=== PATIENT | female | born 1950 | race Caucasian/White ===

== ENCOUNTER 2021-05-24 12:31 | Inpatient (IN) | payer MEDICARE, OTHER ==
[~2021-05-24] VITALS: Ht 172.7 cm; Wt 68.0 kg
[2021-05-24] MEDS ORDERED: IV NS 0.9% 1,000 ML BAG IV ONE (13:00)
--- NOTE | 2021-05-24 13:01 | NUR ---
The patient is bib PA for medical clearance prior to gps admission. on 5150 for dto/gd. Per Report the patient was aggressive to staff and residents. The patient is calm and cooperative at this time. Alert and oriented x1. Denies pain. In room air and denies SOB. Respiration regular and unlabored. Attached to the monitor. Warm blanket provided for comfort. Will continue to monitor the patient
--- NOTE | 2021-05-24 13:10 | NUR ---
IV LINE IS ESTABLISHED, BLOOD SPECIMEN COLLECTED AND SENT TO THE LAB. THE LINE IS SALINE LOCKED.
--- NOTE | 2021-05-24 13:22 | NUR ---
URINE COLLECTED AND SEN TO LAB
[2021-05-24] MEDS ORDERED: SENN-261 PO (13:24)
[2021-05-24] MEDS ORDERED: LIOT25TA13 PO (13:24)
[2021-05-24] MEDS ORDERED: LEVO100T9 PO (13:24)
[2021-05-24] MEDS ORDERED: RIVA1.5C13 PO (13:24)
[2021-05-24] MEDS ORDERED: SERT25TA PO (13:24)
[2021-05-24] MEDS ORDERED: FAMO20TA8 PO (13:24)
[2021-05-24] MEDS ORDERED: MELA3TAB41 PO (13:24)
[2021-05-24] MEDS ORDERED: MAGN400O6 PO (13:24)
[2021-05-24] MEDS ORDERED: LITH450T2 PO (13:24)
[2021-05-24] MEDS ORDERED: ACET-868 PO (13:24)
[2021-05-24] MEDS ORDERED: QUET50TA PO (13:24)
[2021-05-24] MEDS ORDERED: QUET25TA PO (13:24)
[2021-05-24] MEDS ORDERED: MULT-447 PO (13:24)
[2021-05-24] MEDS ORDERED: MEMA10TA PO (13:26)
[2021-05-24 13:28] LABS: EOSINOPHILS % (AUTO) 0.9 % (0.0-6.0); HEMOGLOBIN 13.5 g/dL (11.5-14.8); MEAN CORPUSCULAR HGB CONC 33 g/dl (31.0-36.0); MONOCYTES # (AUTO) 0.4 K/uL (0.1-1.30); PLATELET COUNT (AUTO) 267 K/uL (150-450)
[2021-05-24 13:32] LABS: BASOPHILS % (AUTO) 0.3 % (0.0-2.0); HEMATOCRIT 41 % (33-45); LYMPHOCYTES # (AUTO) 1.2 K/uL (0.8-4.8); LYMPHOCYTES % (AUTO) 16.8 % (20.0-44.0); MEAN CORPUSCULAR VOLUME 94 fL (82-100); NEUTROPHILS # (AUTO) 5.4 K/uL (1.8-8.9); RED BLOOD CELL COUNT(AUTO) 4.36 MIL/uL (4.0-5.2); WHITE BLOOD COUNT (AUTO) 7.2 K/uL (4.3-11.0)
[2021-05-24 13:37] LABS: CALCIUM, SERUM 9.3 mg/dL (8.5-10.1); CARBON DIOXIDE 30 mmol/L (21-32); CHLORIDE 106 mmol/L (98-107); GLUCOSE 100 mg/dL (74-106); POTASSIUM 3.8 mmol/L (3.5-5.1); SODIUM SERUM 141 mmol/L (136-145); UREA NITROGEN, BLOOD 9 mg/dL (7-18)
[2021-05-24 13:39] LABS: BILIRUBIN,URINE Negative (NEGATIVE); COLOR,URINE YELLOW (YELLOW); LEUKOCYTE ESTERASE ,URINE Negative (NEGATIVE); NITRITE, URINE Negative (NEGATIVE); PROTEIN,URINE Negative (NEGATIVE); UGLUCOSE Negative (NEGATIVE); UROBILINOGEN,URINE 0.2 EU/dL (0.2)
--- NOTE | 2021-05-24 13:41 | NUR ---
COVID ANTIGEN SWAB AND SENT TO LAB
[2021-05-24 13:43] LABS: ACETAMINOPHEN 0 ug/ml (10-30); ALANINE AMINOTRANSFERASE 46 U/L (12-78); ALBUMIN 3.4 g/dL (3.4-5.0); ALCOHOL, BLOOD < 3 mg/dL (0-0); ALKALINE PHOSPHATASE 106 U/L (46-116); ASPARTATE AMINOTRANSFERASE 31 U/L (15-37); BILIRUBIN,DIRECT 0.1 mg/dL (0.0-0.2); BILIRUBIN,TOTAL 0.4 mg/dL (0.2-1.0); TOTAL PROTEIN, SERUM 7.4 g/dL (6.4-8.2)
--- NOTE | 2021-05-24 14:00 | NUR ---
MOVE SHEET SUBMITTED
--- NOTE | 2021-05-24 15:15 | NUR ---
[place] [facility] [place]
--- NOTE | 2021-05-24 15:40 | NUR ---
SASCHA CALLED UNABLE TO LEAVE [facility] [place].
--- NOTE | 2021-05-24 15:41 | NUR ---
CALLED EDER COOMBS [phone] [facility]
--- NOTE | 2021-05-24 15:47 | NUR ---
REPORT GIVEN TO KATEY GOTTLIEB FOR OREN
--- NOTE | 2021-05-24 16:00 | NUR ---
RN-ADMISSION NOTES ADMITTED 70 Y.O FEMALE PATIENT [facility]. PATIENT ON 5150 FOR DTO AND GD ADULT. UPON FACE TO FACE ASSESSMENT PATIENT IS ALERT TO NAME ONLY, UNABLE TO COMPREHEND. PATIENT IS UNDER DR. MADRIGAL ( PSYCHIATRIST) AND MARK ZUNIGA ( ROUNDING MACHINE OPERATOR) BOTH ARE AWARE OF THE ADMISSION WITH ORDERS. PATIENT WAS ORIENTED IN THE UNIT AND UNITY POLICIES. PATIENT SPOUSE BRITTANY ASTUDILLO WAS MADE AWARE OF THE ADMISSION. ALL NEEDS ATTENDED AND ANTICIPATED. FULL BODY . ASSESSMENT AND CONTRABAND DONE. WILL ENDORSE TO INCOMING NURSE FOR CONTINUITY OF CARE.
[2021-05-24] MEDS ORDERED: BLOOD SUGAR DIAGNOSTIC 1 EACH STRIP IN ONE (16:30)
[2021-05-24] MEDS ORDERED: ACETAMINOPHEN 325 MG TABLET PO PRN (16:30)
[2021-05-24] MEDS ORDERED: MAG HYDROX/AL HYDROX/SIMETH 30 ML UDC PO PRN (16:30)
[2021-05-24] MEDS ORDERED: MAGNESIUM HYDROXIDE 30 ML UDC PO PRN ×2 (16:30)
[2021-05-24] MEDS ORDERED: HOME MED MISCELLANEOUS XX SCH (16:30)
[2021-05-24] MEDS: MEMANTINE HCL 5 MG TABLET PO SCH (17:06)
[2021-05-24] MEDS: RIVASTIGMINE TARTRATE 1.5 MG CAPSULE PO SCH (17:07)
[2021-05-24 17:20] VITALS: BP 124/60
[2021-05-24 20:56] VITALS: BP 106/65
[2021-05-24] MEDS: FAMOTIDINE (20 MG) 20 MG TABLET PO SCH (21:19)
[2021-05-24] MEDS: SENNOSIDES 8.6 MG TABLET PO SCH (21:19)
[2021-05-24] MEDS: LORAZEPAM 0.5 MG TABLET PO PRN (22:11)
--- NOTE | 2021-05-24 22:11 | NUR ---
GPS-RN NOTES: ANXIETY PATIENT IS ANXIOUS AND RESTLESS. PRN ATIVAN 0.5MG PO GIVEN ORDERED. WILL CONTINUE TO MONITOR FOR PT'S SAFETY.
--- NOTE | 2021-05-25 06:10 | NUR ---
GPS-RN NOTES: INDIGESTION PATIENT WITH EPISODE OF THROWING UP X1 IN LARGE AMOUNT OF UNDIGESTED FOOD. PRN MAALOX 30ML PO GIVEN ORDERED. WILL CONTINUE TO MONITOR AND WILL ENDORSE TO DAY SHIFT NURSE FOR CONTINUITY OF CARE.
[2021-05-25 08:00] VITALS: BP 103/66
[2021-05-25 08:03] LABS: ALBUMIN 2.8 g/dL (3.4-5.0); BILIRUBIN,TOTAL 0.4 mg/dL (0.2-1.0); CALCIUM, SERUM 8.6 mg/dL (8.5-10.1); POTASSIUM 3.8 mmol/L (3.5-5.1); TOTAL PROTEIN, SERUM 6.3 g/dL (6.4-8.2)
[2021-05-25 08:05] LABS: CHOLESTEROL 220 mg/dL (<200); HDL CHOLESTEROL 58 mg/dL (40-60); LDL 139 mg/dL (0-99); TRIGLYCERIDES 101 mg/dL (30-150)
[2021-05-25] MEDS: MULTIVITAMINS,THERAGRAN 1 UDTAB TABLET PO SCH (08:20)
[2021-05-25] MEDS: RIVASTIGMINE TARTRATE 1.5 MG CAPSULE PO SCH ×2 (08:20→16:22)
[2021-05-25] MEDS: FAMOTIDINE (20 MG) 20 MG TABLET PO SCH ×2 (08:20→22:08)
[2021-05-25] MEDS: MEMANTINE HCL 5 MG TABLET PO SCH ×2 (08:20→16:22)
[2021-05-25] MEDS: LEVOTHYROXINE SODIUM 100 MCG TABLET PO SCH (08:20)
[2021-05-25] MEDS: LIOTHYRONINE SODIUM (25 MCG) 25 MCG TABLET PO SCH (08:23)
--- NOTE | 2021-05-25 09:22 | NUR ---
LORI Initial Discharge Plan: Pt was currently residing at [facility]. LORI spoke with Troy slade ([phone]) who stated pt cannot return back because wants her back home. SW will coordinate appropriate discharge with treatment team and family.
--- NOTE | 2021-05-25 09:44 | NUR ---
LORI Family Contact: SW attempted to contact patient's Bogdan ([phone]) and left a voicemail to gather collateral.
--- NOTE | 2021-05-25 09:45 | NUR ---
SNF Contact: SW spoke with Troy slade ([phone]) who stated pt cannot return back because wants her back home. SW will attempt to speak to Bogdan ([phone]).
--- NOTE | 2021-05-25 10:45 | NUR ---
SNF Contact: SW spoke with Troy slade ([phone]) who stated that they are accepting pt back.
--- NOTE | 2021-05-25 10:45 | NUR ---
LORI Family Contact: LORI attempted to contact patient's Bogdan ([phone]) and gathered collateral. He stated that they have no family support. He reported that he is living in his van. Bogdan shared that he does not want pt back at [facility] but if this development writer is unable to find a facility, he is accepting of pt returning back. LORI will work with family to find appropriate discharge.
[2021-05-25] MEDS: LORAZEPAM 0.5 MG TABLET PO PRN (12:05)
--- NOTE | 2021-05-25 12:05 | NUR ---
RN-NOTES NOTED PATIENT CRYING ,ANXIOUS UNABLE TO SIT STILL. REDIRECTED AND ATIVAN 0.5MG P.O GIVEN PRN ORDER. WILL CONT. MONITORING FOR SAFETY AND BEHAVIOR.
--- NOTE | 2021-05-25 12:10 | NUR ---
RN-NOTES PATIENT IN THE DAY ROOM, AWAKE, ALERT CALM AND QUIET,NO ACUTE DISTRESS NOTED.
--- NOTE | 2021-05-25 13:10 | NUR ---
RN-NOTES PATIENT IN THE DAY ROOM SITTING IN THE CHAIR CALM,NO ACUTE DISTRESS NOTED.
[2021-05-25 16:00] VITALS: BP 114/61
[2021-05-25] MEDS: QUETIAPINE FUMARATE 25 MG TABLET PO SCH (17:15)
[2021-05-25] MEDS: LITHIUM CARBONATE 150 MG CAPSULE PO SCH (17:15)
[2021-05-25 20:00] VITALS: BP 117/78
[2021-05-25] MEDS ORDERED: QUETIAPINE FUMARATE 100 MG TABLET PO SCH (22:00)
[2021-05-25] MEDS: SENNOSIDES 8.6 MG TABLET PO SCH (22:07)
--- NOTE | 2021-05-26 06:22 | NUR ---
RN CLOSING NOTE PATIENT CURRENTLY SLEEPING IN BED, BREATHING EVENLY AND UNLABORED, NO S/S OF DISTRESS OR SOB NOTED. PATIENT SLEPT WELL THROUGH THE NIGHT, NO SIGNIFICANT CHANGES AND NO BEHAVIORAL ISSUES NOTED. PT SPENT TIME WITH HER AT THE BEGINNING OF THE SHIFT. PT HAD LABILE MOOD AND HAD DIFFICULTY FORMING SENTENCES THAT MADE SENSE, PT CONFUSED. PT WAS MED COMPLIANT, MEDICATIONS GIVEN ORDERED AND PATIENT NEEDS MET THROUGHOUT SHIFT. PT WAS MOVED TO A DIFFERENT ROOM BECAUSE ROOMMATE WAS AGGRESSIVE AND HOSTILE. SAFETY MEASURES IN PLACE: BED LOCKED IN LOW POSITION, SIDE RAILS UP X 2, Q15 MIN CHECKS FOR SAFETY. WILL ENDORSE TO DAY SHIFT NURSE FOR CONTINUITY OF CARE.
--- NOTE | 2021-05-26 07:20 | NUR ---
RN OPENING NOTES RECEIVED PATIENT SLEEPING IN BED, WHEELS ARE LOCKED - LOW TO FLOOR FOR SAFETY MEASURES, NO SOB NOTED, BREATHING IS EVEN AND UNLABORED, NO S/S OF DISTRESS. CALL LIGHT IN REACH.
[2021-05-26] MEDS: LIOTHYRONINE SODIUM (25 MCG) 25 MCG TABLET PO SCH ×2 (07:30→09:21)
[2021-05-26 08:00] VITALS: BP 103/70
[2021-05-26] MEDS: MEMANTINE HCL 5 MG TABLET PO SCH ×3 (09:00→17:29)
[2021-05-26] MEDS: FAMOTIDINE (20 MG) 20 MG TABLET PO SCH ×3 (09:00→20:52)
[2021-05-26] MEDS: RIVASTIGMINE TARTRATE 1.5 MG CAPSULE PO SCH ×3 (09:00→17:29)
[2021-05-26] MEDS: MULTIVITAMINS,THERAGRAN 1 UDTAB TABLET PO SCH ×2 (09:00→09:22)
[2021-05-26] MEDS: QUETIAPINE FUMARATE 25 MG TABLET PO SCH ×3 (09:00→13:26)
[2021-05-26] MEDS: LITHIUM CARBONATE 150 MG CAPSULE PO SCH ×3 (09:21→17:29)
[2021-05-26] MEDS: LEVOTHYROXINE SODIUM 100 MCG TABLET PO SCH (09:22)
--- NOTE | 2021-05-26 09:41 | NUR ---
Staff reported that pt. went to a male room and kissing each other and when redirected pt. was angry, agitated, screaming and yelling. Dr. Chavez made aware and ordered Zyprexa 10 mg IM. Addendum: 05/26/21 at 1036 by AMY MANDUJANO RN Called Daquan at [phone] and made aware.
--- NOTE | 2021-05-26 09:53 | NUR ---
RN NOTES RECEIVED PATIENT ASLEEP, NO DISTRESS NOTED, NO SOB NOTED, BREATHING NORMAL, BED LOW TO FLOOR, WHEELS LOCKED, SAFETY MEASURES IN PLACE.
--- NOTE | 2021-05-26 09:55 | NUR ---
RN NOTES PATIENT GAIT UNSTEADY, NOT COOPERATIVE WITH ASKING FOR HELP TO AMBULATE AND TRANSFER, PLACED IN SANDY CHAIR WITH TRAY LOCK FOR SAFETY, SCREAMING HOLLERING CRYING EXTREMELY LOUD DISRUPTING OTHER PATIENTS AND ATMOSPHERE, MOVED TO OBSERVATION ROOM, GIVEN CRACKERS AND WATER, CONTINUED TO SCREAM AND WIGGLE VIVACIOUSLY TO GET OUT OF THE CHAIR, NOTIFIED, ORDERED OLANZAPINE 10 MG IN INJECTION, THERAPY TECH RN ADMIN MED, EFFECTIVE, WILL CONTINUE TO OBSERVE AND KEEP PATIENT SAFE, FALL PREVENTION MEASURES INTACT FOR SAFETY.
[2021-05-26] MEDS ORDERED: OLANZAPINE 10 MG VIAL IM ONE (10:00)
[2021-05-26 16:00] VITALS: BP 106/59
--- NOTE | 2021-05-26 16:02 | NUR ---
SNF Referral: LORI sent clinicals to Ronald slade from [facility] ([phone]. LORI sent H & P, progress notes, and medication list.
--- NOTE | 2021-05-26 18:46 | NUR ---
PATIENT FRIENDLY WITH MALE PATIENT SEEN HOLDING HANDS AND KISSING, REDIRECTED, ALLOWED TO HOLD HANDS AND WALK BUT STOPPED THE KISSING FROM LEADING TO ANYTHING ELSE, MONITORED CLOSELY, COOPERATIVE TO CARE, NO ASPIRATIONS NOTED, ATE 100% OF DINNER, GIVEN REASSURANCE EVERYTHING WILL BE OK, ENCOURAGED TO DRINK WATER COOPERATIVE AND REDIRECTED , I WRITE THIS NOTE THE PATIENT SAT ON THE FLOOR AND STARTED CRYING AND SCREAMING FOR HER BABY, (THERE IS NO BABY), REDIRECTED TO SIT AND WATCH TV AND RELAX, COMPLIANT WITH ONE ON ONE CARE AND NEEDS MORE ATTENTION AT THIS TIME. CLOSELY MONITORED SHE IS A FALL RISK AND NOT COMPLIANT AT THIS TIME. AGGITATED AND ANGER ASKING TO PLEASE LEAVE AND GO HOME TO HER BABY.
--- NOTE | 2021-05-26 19:16 | NUR ---
Pt. is highly agitated, aggressive, screaming and yelling very loud, not following direction. Notified Dr. Chavez and ordered Ativan 1 mg IM, Haldol 5 mg IM and Benadryl 25 mg IM.
[2021-05-26] MEDS ORDERED: diphenhydrAMINE HCL 50 MG/ML VIAL IM ONE (19:30)
[2021-05-26] MEDS ORDERED: HALOPERIDOL LACTATE INJ 5 MG/ML VIAL IM ONE (19:30)
[2021-05-26] MEDS ORDERED: LORAZEPAM INJ 2 MG/ML VIAL IM ONE (19:30)
[2021-05-26 20:00] VITALS: BP 156/72
[2021-05-26 20:13] VITALS: BP 156/72
[2021-05-26] MEDS ORDERED: OLANZAPINE 5 MG TABLET PO SCH (21:00)
[2021-05-26] MEDS: SENNOSIDES 8.6 MG TABLET PO SCH (21:06)
--- NOTE | 2021-05-26 21:41 | NUR ---
AT START OF SHIFT, PATIENT VERY AGITATED, SCREAMING VERY LOUD, NON REDIRECTABLE, NOTIFIED DR. MADRIGAL, WAS GIVEN HALDOL, ATIVAN AND BENADRYL AND PUT ON SANDY CHAIR, MEDICATION EFFECTIVE, PATIENT IS NOW CALM, DROWSY, BEING MONITORED CLOSELY FOR SAFETY
[2021-05-26] MEDS: TEMAZEPAM 7.5 MG CAPSULE PO PRN (23:52)
--- NOTE | 2021-05-27 05:57 | NUR ---
CALM AFTER GETTING ATIVAN, HALDOL AND BENADRYL, TOOK ALL MEDS, SLEPT FOR 6 HOURS
[2021-05-27 08:00] VITALS: BP 135/78
[2021-05-27] MEDS: LIOTHYRONINE SODIUM (25 MCG) 25 MCG TABLET PO SCH (08:53)
[2021-05-27] MEDS: LITHIUM CARBONATE 150 MG CAPSULE PO SCH ×3 (08:53→21:08)
[2021-05-27] MEDS: MULTIVITAMINS,THERAGRAN 1 UDTAB TABLET PO SCH (08:53)
[2021-05-27] MEDS: MEMANTINE HCL 5 MG TABLET PO SCH ×2 (08:53→16:31)
[2021-05-27] MEDS: FAMOTIDINE (20 MG) 20 MG TABLET PO SCH ×2 (08:53→21:08)
[2021-05-27] MEDS: RIVASTIGMINE TARTRATE 1.5 MG CAPSULE PO SCH ×2 (08:53→16:30)
[2021-05-27] MEDS: LEVOTHYROXINE SODIUM 100 MCG TABLET PO SCH (08:53)
[2021-05-27] MEDS ORDERED: OLANZAPINE 5 MG TABLET PO SCH (09:00)
[2021-05-27] MEDS: OLANZAPINE 5 MG TABLET PO SCH ×2 (13:20→16:30)
[2021-05-27 16:00] VITALS: BP 100/69
[2021-05-27 20:12] VITALS: BP 123/80
[2021-05-27] MEDS: SENNOSIDES 8.6 MG TABLET PO SCH (21:08)
[2021-05-27] MEDS: LORAZEPAM 0.5 MG TABLET PO PRN (21:08)
[2021-05-28] MEDS: LEVOTHYROXINE SODIUM 100 MCG TABLET PO SCH (07:58)
[2021-05-28] MEDS: LIOTHYRONINE SODIUM (25 MCG) 25 MCG TABLET PO SCH (07:58)
[2021-05-28] MEDS: LITHIUM CARBONATE 150 MG CAPSULE PO SCH ×3 (07:59→20:59)
[2021-05-28 08:00] VITALS: BP 108/62
[2021-05-28] MEDS: RIVASTIGMINE TARTRATE 1.5 MG CAPSULE PO SCH ×2 (08:00→16:55)
[2021-05-28] MEDS: MEMANTINE HCL 5 MG TABLET PO SCH ×2 (08:00→16:56)
[2021-05-28] MEDS: MULTIVITAMINS,THERAGRAN 1 UDTAB TABLET PO SCH (08:00)
[2021-05-28] MEDS: FAMOTIDINE (20 MG) 20 MG TABLET PO SCH ×2 (08:01→21:03)
[2021-05-28] MEDS: OLANZAPINE 5 MG TABLET PO SCH ×3 (08:02→16:55)
[2021-05-28 16:00] VITALS: BP 116/57
[2021-05-28 19:52] VITALS: BP 115/68
[2021-05-28] MEDS: SENNOSIDES 8.6 MG TABLET PO SCH (21:03)
[2021-05-29] MEDS: LORAZEPAM 0.5 MG TABLET PO PRN ×2 (00:31→17:47)
--- NOTE | 2021-05-29 00:36 | NUR ---
GPS RN NOTES: PATIENT WAS RESTLESS, YELLING AND AGITATED. ATIVAN 0.5MG GIVEN PO AT 0031. WILL CONTINUE TO MONITOR.
[2021-05-29] MEDS: TEMAZEPAM 7.5 MG CAPSULE PO PRN ×2 (01:10→20:36)
--- NOTE | 2021-05-29 01:12 | NUR ---
GPS RN NOTES: RESTORIL 7.5MG 1 CAP GIVEN PO AT 0110. WILL CONTINUE TO MONITOR.
[2021-05-29] MEDS: ACETAMINOPHEN 325 MG TABLET PO PRN ×2 (01:14→21:10)
[2021-05-29 08:00] VITALS: BP 106/69
[2021-05-29] MEDS: RIVASTIGMINE TARTRATE 1.5 MG CAPSULE PO SCH ×2 (08:14→17:00)
[2021-05-29] MEDS: MEMANTINE HCL 5 MG TABLET PO SCH ×2 (08:14→17:34)
[2021-05-29] MEDS: LEVOTHYROXINE SODIUM 100 MCG TABLET PO SCH (08:15)
[2021-05-29] MEDS: OLANZAPINE 5 MG TABLET PO SCH ×3 (08:15→17:34)
[2021-05-29] MEDS: LITHIUM CARBONATE 150 MG CAPSULE PO SCH ×3 (08:15→20:35)
[2021-05-29] MEDS: LIOTHYRONINE SODIUM (25 MCG) 25 MCG TABLET PO SCH (08:15)
[2021-05-29] MEDS: FAMOTIDINE (20 MG) 20 MG TABLET PO SCH ×2 (08:15→20:36)
[2021-05-29] MEDS: MULTIVITAMINS,THERAGRAN 1 UDTAB TABLET PO SCH (08:15)
--- NOTE | 2021-05-29 15:10 | NUR ---
SNF Contact: SW received a call from Ronald slade from [facility] [phone]. Ronald stated pt is accepted.
--- NOTE | 2021-05-29 15:12 | NUR ---
LORI Family Contact: SW attempted to contact patient's Bogdan ([phone]) informed that pt is accepted at [facility] [place] 2] and was approving of this.
[2021-05-29 16:00] VITALS: BP 104/65
[2021-05-29 20:24] VITALS: BP 143/65
[2021-05-29] MEDS: SENNOSIDES 8.6 MG TABLET PO SCH (20:35)
--- NOTE | 2021-05-29 21:30 | NUR ---
GPS RN NOTE PT AWAKE AND RESTLESS SCREAMING LAOUD, HS MEDS GIVEN. ALSO GIVEN RESTORIL 7.5 MG FOR SLEEP, CONTINUE TO MONITOR
--- NOTE | 2021-05-30 | NUR ---
GPS RN NOTE PT FALLING ASLEEP, BUT WAKES UP AND SCREAMS AT TIMES.
[2021-05-30] MEDS: LORAZEPAM 0.5 MG TABLET PO PRN ×2 (05:15→12:29)
--- NOTE | 2021-05-30 05:15 | NUR ---
GPS RN NOTE PT WOKE UP AND STARTED TO SCREAMS ATIVAN 0.5 MG PO GIVEN. CONTINUE TO MONITOR HER. FLUIDS AND SNACKS GIVEN. TRIED TO CALM HER DOWN.
[2021-05-30] MEDS: LEVOTHYROXINE SODIUM 100 MCG TABLET PO SCH (07:30)
[2021-05-30] MEDS: LIOTHYRONINE SODIUM (25 MCG) 25 MCG TABLET PO SCH (07:30)
[2021-05-30 07:49] LABS: BASOPHILS % (AUTO) 0.3 % (0.0-2.0); EOSINOPHILS % (AUTO) 2.4 % (0.0-6.0); HEMATOCRIT 38 % (33-45); HEMOGLOBIN 12.5 g/dL (11.5-14.8); LYMPHOCYTES # (AUTO) 1.8 K/uL (0.8-4.8); LYMPHOCYTES % (AUTO) 22.1 % (20.0-44.0); MEAN CORPUSCULAR HGB CONC 33 g/dl (31.0-36.0); MEAN CORPUSCULAR VOLUME 95 fL (82-100); MONOCYTES # (AUTO) 0.8 K/uL (0.1-1.30); MONOCYTES % (AUTO) 9.3 % (2.0-12.0); NEUTROPHILS # (AUTO) 5.4 K/uL (1.8-8.9); NEUTROPHILS % (AUTO) 65.9 % (43.0-81.0); PLATELET COUNT (AUTO) 295 K/uL (150-450); RED BLOOD CELL COUNT(AUTO) 4.02 MIL/uL (4.0-5.2); WHITE BLOOD COUNT (AUTO) 8.1 K/uL (4.3-11.0)
[2021-05-30 07:53] LABS: ALBUMIN 3.6 g/dL (3.4-5.0); BILIRUBIN,TOTAL 0.3 mg/dL (0.2-1.0); CALCIUM, SERUM 9.5 mg/dL (8.5-10.1); POTASSIUM 3.4 mmol/L (3.5-5.1); TOTAL PROTEIN, SERUM 7.9 g/dL (6.4-8.2)
[2021-05-30 08:00] VITALS: BP 110/66
[2021-05-30] MEDS: OLANZAPINE 5 MG TABLET PO SCH ×4 (08:00→21:31)
[2021-05-30] MEDS: LITHIUM CARBONATE 150 MG CAPSULE PO SCH ×2 (08:00→12:29)
[2021-05-30 08:05] LABS: THYROID STIMULATING HORMONE 54.512 uIU/mL (0.358-3.74)
[2021-05-30] MEDS: MEMANTINE HCL 5 MG TABLET PO SCH ×2 (09:27→17:23)
[2021-05-30] MEDS: RIVASTIGMINE TARTRATE 1.5 MG CAPSULE PO SCH ×2 (09:27→17:30)
[2021-05-30] MEDS: FAMOTIDINE (20 MG) 20 MG TABLET PO SCH ×2 (09:27→21:07)
[2021-05-30] MEDS: MULTIVITAMINS,THERAGRAN 1 UDTAB TABLET PO SCH (09:27)
[2021-05-30] MEDS ORDERED: POTASSIUM CHLORIDE 20 MEQ TAB.PRT.SR PO SCH (10:30)
--- NOTE | 2021-05-30 12:29 | NUR ---
PATIENT AGITATED MEDICATED WITH ATIVAN 0.5MG WILL CONTINUE TO MONITOR .
--- NOTE | 2021-05-30 13:58 | NUR ---
Court Hearing: Patient's court hearing for 7390 was today and it was upheld for GD and danger to others.
--- NOTE | 2021-05-30 14:31 | NUR ---
SW Note: SW met with patient to conduct therapy. Pt appeared to be very confused. Pt unable to have proper conversation due to her confusion.
[2021-05-30 16:07] VITALS: BP 113/83
[2021-05-30] MEDS: LORAZEPAM 0.5 MG TABLET PO SCH (17:30)
[2021-05-30 20:00] VITALS: BP 118/73
[2021-05-30 20:38] VITALS: BP 118/73
[2021-05-30 20:46] VITALS: BP 118/73
[2021-05-30] MEDS: SENNOSIDES 8.6 MG TABLET PO SCH (21:07)
--- NOTE | 2021-05-31 06:55 | NUR ---
RN NOTE PATIENT SLEPT WELL AT NIGHT. NO BEHAVIOR EPISODES NOTED THROUGHOUT THE SHIFT. REDIRECTABLE.
[2021-05-31] MEDS: LORAZEPAM 0.5 MG TABLET PO SCH ×3 (07:40→16:57)
[2021-05-31] MEDS: LEVOTHYROXINE SODIUM 100 MCG TABLET PO SCH (07:40)
[2021-05-31] MEDS: LIOTHYRONINE SODIUM (25 MCG) 25 MCG TABLET PO SCH (07:40)
[2021-05-31] MEDS: OLANZAPINE 5 MG TABLET PO SCH ×4 (07:41→21:20)
[2021-05-31 08:00] VITALS: BP 100/65
[2021-05-31] MEDS ORDERED: LITHIUM CARBONATE 150 MG CAPSULE PO SCH (08:00)
[2021-05-31] MEDS: MEMANTINE HCL 5 MG TABLET PO SCH ×2 (08:01→16:57)
[2021-05-31] MEDS: RIVASTIGMINE TARTRATE 1.5 MG CAPSULE PO SCH ×2 (08:01→16:57)
[2021-05-31] MEDS: FAMOTIDINE (20 MG) 20 MG TABLET PO SCH ×2 (08:01→21:20)
[2021-05-31] MEDS: MULTIVITAMINS,THERAGRAN 1 UDTAB TABLET PO SCH (08:02)
[2021-05-31] MEDS: OLANZAPINE ZYDIS 5 MG TAB.RAPDIS PO PRN (11:03)
--- NOTE | 2021-05-31 11:07 | NUR ---
RN-CO: ZYPREXA 5 MG PO GIVEN FOR AGITATION M/B SCREAMING AND YELLING.
[2021-05-31 16:00] VITALS: BP 100/68
[2021-05-31] MEDS: LITHIUM CARBONATE 150 MG CAPSULE PO SCH (16:57)
[2021-05-31 20:00] VITALS: BP 123/53
[2021-05-31 20:30] VITALS: BP 123/53
[2021-05-31] MEDS: SENNOSIDES 8.6 MG TABLET PO SCH (21:35)
[2021-06-01 08:00] VITALS: BP 107/68
[2021-06-01] MEDS: MEMANTINE HCL 5 MG TABLET PO SCH ×2 (08:01→16:31)
[2021-06-01] MEDS: LEVOTHYROXINE SODIUM 100 MCG TABLET PO SCH (08:01)
[2021-06-01] MEDS: LORAZEPAM 0.5 MG TABLET PO SCH ×3 (08:01→16:30)
[2021-06-01] MEDS: LIOTHYRONINE SODIUM (25 MCG) 25 MCG TABLET PO SCH (08:01)
[2021-06-01] MEDS: LITHIUM CARBONATE 150 MG CAPSULE PO SCH ×3 (08:02→16:31)
[2021-06-01] MEDS: FAMOTIDINE (20 MG) 20 MG TABLET PO SCH ×2 (08:02→20:40)
[2021-06-01] MEDS: OLANZAPINE 5 MG TABLET PO SCH ×3 (08:02→20:41)
[2021-06-01] MEDS: RIVASTIGMINE TARTRATE 1.5 MG CAPSULE PO SCH ×2 (08:02→16:30)
[2021-06-01] MEDS: MULTIVITAMINS,THERAGRAN 1 UDTAB TABLET PO SCH (09:46)
[2021-06-01] MEDS: OLANZAPINE ZYDIS 5 MG TAB.RAPDIS PO PRN (09:48)
[2021-06-01 16:00] VITALS: BP 126/72
--- NOTE | 2021-06-01 19:10 | NUR ---
RN NOTES: PT. BEHAVIOR ANXIOUS EASILY AGITATED PARANOID UNCOOPERTIVE, CONFUSED DISORGANIZED NON COMPLIANT WITH DIRECTIONS AND PLAN OF CARE . PT. REFUSED TO STAYING IN THE BED ATTEMPTING TO GETING OUT THE BED VERY OFTEN REFUSING TO STAY IN BED , PT. GAIT VERY UNSTEADY AND HIGH FALL RISKS, PT. OBSERVED CLOSELY ALL NEEDS WERE MET, BANGING SIDE RAILS , PT. SKIN IS VERY FRAGILE AND NOTED WITH MULTIPLE SKIN DISCOLORATIONS FROM PREVIOUSLY , PT. REFUSED SKIN ASSESSMENT , ENCOURAGED BUT PT. BEHAVIOR VERY UNCOOERTIVE ,AND STRONGLY REFUSED, WILL CONTINUE WITH PLAN OF CARE.
--- NOTE | 2021-06-01 19:45 | NUR ---
RN NOTES: PT. AWAKE ALERT , EASILY AGITATED, EASILY AGITATED PARANOID UNCOOPERTIVE, CONFUSED DISORGANIZED NON COMPLIANT WITH DIRECTIONS AND PLAN OF CARE , REFUSING TO STAY IN BED , BANGING SIDE RAILS ASSISTED TO GERICAHIR BUT BANGING SANDY CHAIR TRAY, OFFERD PRN'S FOR UNCOOPERTIVE BEHAVIOR BUT PT. REFUSED TO TAKE PRN MEDS ,PT. HAS SKIN VERY FRAGILE AND SELF INFLICTED MULTIPLE BRUISES SKIN DISCOLORATIONS NOTED , ENCOURAGED FOR PO FLUIDS AND SNACKS TOLERTED, WILL CONTINUE WITH PLAN OF CARE
[2021-06-01 20:00] VITALS: BP 111/94
[2021-06-01] MEDS: SENNOSIDES 8.6 MG TABLET PO SCH (21:29)
[2021-06-02] MEDS: LORAZEPAM 0.5 MG TABLET PO PRN (00:18)
--- NOTE | 2021-06-02 00:20 | NUR ---
RN NOTES : PT. IS ANXIOUS SCREAMING YELLING CRYING , NON REDIRECTABLE, ATIVAN 0.5 MG PO PRN GIVEN, WILL CONTINUE TO MONITOR.
--- NOTE | 2021-06-02 06:56 | NUR ---
RN NOTES: PT. BEHAVIOR THROUGH OUT SHIFT ANXIOUS EASILY AGITATED PARANOID UNCOOPERTIVE, CONFUSED DISORGANIZED NON COMPLIANT WITH DIRECTIONS AND PLAN OF CARE . PT. REFUSED TO STAYING IN THE BED ATTEMPTING TO GETING OUT THE BED VERY OFTEN REFUSING TO STAY IN BED , PT. GAIT VERY UNSTEADY AND HIGH FALL RISKS, PT. OBSERVED CLOSELY ALL NEEDS WERE MET, BANGING SIDE RAILS , PT. SKIN IS VERY FRAGILE AND NOTED WITH MULTIPLE SKIN DISCOLORATIONS FROM PREVIOUSLY , PT. REFUSED SKIN ASSESSMENT , ENCOURAGED BUT PT. BEHAVIOR VERY UNCOOERTIVE ,AND STRONGLY REFUSED, WILL CONTINUE WITH PLAN OF CARE.
--- NOTE | 2021-06-02 07:12 | NUR ---
RN NOTES: PT. BEHAVIOR THROUGH OUT SHIFT EASILY AGITED , DISORGNIZED , PT. RESTING HIS ROOM AT THIS TIME ENCOURAGED PO FLUIDS AND SNACKS TOLERTED WITH PLAN OF CARE. Addendum: 06/02/21 at 0718 by CHANG ACOSTA RN RN NOTES: PT. BEHAVIOR THROUGH OUT SHIFT EASILY AGITED , DISORGNIZED , PT. RESTING IN HER ROOM AT THIS TIME ENCOURAGED PO FLUIDS AND SNACKS TOLERTED WITH PLAN OF CARE.
[2021-06-02 08:00] VITALS: BP 127/76
[2021-06-02] MEDS: RIVASTIGMINE TARTRATE 1.5 MG CAPSULE PO SCH ×2 (08:15→16:27)
[2021-06-02] MEDS: LIOTHYRONINE SODIUM (25 MCG) 25 MCG TABLET PO SCH (08:15)
[2021-06-02] MEDS: FAMOTIDINE (20 MG) 20 MG TABLET PO SCH ×2 (08:15→21:10)
[2021-06-02] MEDS: MEMANTINE HCL 5 MG TABLET PO SCH ×2 (08:15→16:27)
[2021-06-02] MEDS: LEVOTHYROXINE SODIUM 100 MCG TABLET PO SCH (08:15)
[2021-06-02] MEDS: MULTIVITAMINS,THERAGRAN 1 UDTAB TABLET PO SCH (08:15)
[2021-06-02] MEDS: LORAZEPAM 0.5 MG TABLET PO SCH ×3 (08:16→16:27)
[2021-06-02] MEDS: LITHIUM CARBONATE 150 MG CAPSULE PO SCH ×3 (08:16→16:27)
[2021-06-02 16:00] VITALS: BP 105/70
[2021-06-02 19:56] VITALS: BP 101/82
[2021-06-02] MEDS: OLANZAPINE 5 MG TABLET PO SCH (21:10)
[2021-06-02] MEDS: SENNOSIDES 8.6 MG TABLET PO SCH (21:10)
--- NOTE | 2021-06-03 06:52 | NUR ---
RN CLOSING NOTE P PATIENT SLEPT WELL THROUGH THE NIGHT, NO SIGNIFICANT CHANGES AND NO BEHAVIORAL ISSUES NOTED. PT SPENT TIME WITH HER AT THE BEGINNING OF THE SHIFT. PT HAD LABILE MOOD, CONFUSED FORGETFUL,DISORGNIZED. PT WAS MED COMPLIANT, PATIENT NEEDS MET THROUGHOUT SHIFT.. SAFETY MEASURES IN PLACE, WILL CONTINUE WITH PLAN OF CARE.
--- NOTE | 2021-06-03 06:56 | NUR ---
RN NOTE: PATIENT SLEPT WELL THROUGH THE NIGHT, NO SIGNIFICANT CHANGES AND NO BEHAVIORAL ISSUES NOTED. PT SPENT TIME WITH HER AT THE BEGINNING OF THE SHIFT. PT HAD LABILE MOOD, CONFUSED FORGETFUL,DISORGNIZED. PT WAS MED COMPLIANT, PATIENT NEEDS MET THROUGHOUT SHIFT.. SAFETY MEASURES IN PLACE, WILL CONTINUE WITH PLAN OF CARE.
[2021-06-03 08:00] VITALS: BP 152/56
[2021-06-03] MEDS: FAMOTIDINE (20 MG) 20 MG TABLET PO SCH ×2 (08:55→21:16)
[2021-06-03] MEDS: LIOTHYRONINE SODIUM (25 MCG) 25 MCG TABLET PO SCH (08:55)
[2021-06-03] MEDS: MEMANTINE HCL 5 MG TABLET PO SCH ×2 (08:55→16:34)
[2021-06-03] MEDS: LITHIUM CARBONATE 150 MG CAPSULE PO SCH ×3 (08:55→16:35)
[2021-06-03] MEDS: LEVOTHYROXINE SODIUM 100 MCG TABLET PO SCH (08:55)
[2021-06-03] MEDS: RIVASTIGMINE TARTRATE 1.5 MG CAPSULE PO SCH ×2 (08:56→16:35)
[2021-06-03] MEDS: OLANZAPINE 5 MG TABLET PO SCH ×3 (08:56→21:16)
[2021-06-03] MEDS: LORAZEPAM 0.5 MG TABLET PO SCH ×3 (08:56→16:35)
[2021-06-03] MEDS: MULTIVITAMINS,THERAGRAN 1 UDTAB TABLET PO SCH (08:56)
[2021-06-03 16:00] VITALS: BP 145/61
[2021-06-03 20:19] VITALS: BP 101/62
[2021-06-03] MEDS: SENNOSIDES 8.6 MG TABLET PO SCH (21:16)
--- NOTE | 2021-06-04 06:30 | NUR ---
RN NOTES: PT. ANXIOUS EASILY AGITATED PARANOID UNCOOPERTIVE, CONFUSED, DISORGANIZED , NON COMPLIANT WITH DIRECTIONS AND PLAN OF CARE . PT. REFUSED TO STAYING IN THE BED ATTEMPTING TO GETING OUT THE BED VERY OFTEN REFUSING TO STAY IN BED , PT. GAIT VERY UNSTEADY AND HIGH FALL RISKS, PT. OBSERVED CLOSELY ALL NEEDS WERE MET, BANGING SIDE RAILS , PT. REFUSED SKIN ASSESSMENT , ENCOURAGED BUT PT. BEHAVIOR VERY UNCOOPERTIVE ,AND STRONGLY REFUSED, WILL CONTINUE WITH PLAN OF CARE.
[2021-06-04 08:00] VITALS: BP 149/91
--- NOTE | 2021-06-04 08:00 | NUR ---
RN OPENING NOTE PATIENT RESTING IN DAY ROOM . FLAT BLUNTED AFFECT, ANXIOUS ,EASILY AGITATED DISORGANIZED, DISORIENTED, CONFUSED, POOR INSIGHT, POOR JUDGEMENT. NEEDS FREQUENT REDIRECTIONS , ATTEMPTING GETTING OUT THE BED VERY OFTEN , SAFETY PRECAUTIONS MAINTAINED ,NO ACUTE DISTRESS NOTED. WILL CONTINUE TO MONITOR Q15 MIN FOR MOOD, SAFETY AND BEHAVIOR.
[2021-06-04] MEDS: LEVOTHYROXINE SODIUM 100 MCG TABLET PO SCH (09:23)
[2021-06-04] MEDS: LORAZEPAM 0.5 MG TABLET PO SCH ×3 (09:23→16:41)
[2021-06-04] MEDS: LIOTHYRONINE SODIUM (25 MCG) 25 MCG TABLET PO SCH (09:23)
[2021-06-04] MEDS: LITHIUM CARBONATE 150 MG CAPSULE PO SCH ×3 (09:23→16:41)
[2021-06-04] MEDS: OLANZAPINE 5 MG TABLET PO SCH ×4 (09:24→21:20)
[2021-06-04] MEDS: FAMOTIDINE (20 MG) 20 MG TABLET PO SCH ×2 (09:24→21:21)
[2021-06-04] MEDS: MEMANTINE HCL 5 MG TABLET PO SCH ×2 (09:24→16:42)
[2021-06-04] MEDS: MULTIVITAMINS,THERAGRAN 1 UDTAB TABLET PO SCH (09:24)
[2021-06-04] MEDS: RIVASTIGMINE TARTRATE 1.5 MG CAPSULE PO SCH ×2 (09:24→16:41)
[2021-06-04] MEDS: LORAZEPAM 0.5 MG TABLET PO PRN (09:45)
[2021-06-04 16:00] VITALS: BP 141/95
[2021-06-04 19:29] VITALS: BP 112/64
[2021-06-04] MEDS: SENNOSIDES 8.6 MG TABLET PO SCH (21:20)
[2021-06-05] MEDS: LORAZEPAM 0.5 MG TABLET PO PRN ×2 (03:55→15:00)
--- NOTE | 2021-06-05 03:55 | NUR ---
GPS-RN NOTES: ANXIETY PATIENT IS VERY ANXIOUS, SCREAMING AND YELLING INTERMITTENTLY. PRN ATIVAN 0.5MG PO GIVEN. WILL CONTINUE TO MONITOR FOR PT'S SAFETY.
[2021-06-05 07:22] LABS: BASOPHILS % (AUTO) 0.4 % (0.0-2.0); HEMATOCRIT 37 % (33-45); HEMOGLOBIN 12.5 g/dL (11.5-14.8); LYMPHOCYTES # (AUTO) 1.5 K/uL (0.8-4.8); LYMPHOCYTES % (AUTO) 20.4 % (20.0-44.0); MEAN CORPUSCULAR HGB CONC 34 g/dl (31.0-36.0); MEAN CORPUSCULAR VOLUME 95 fL (82-100); MONOCYTES # (AUTO) 0.6 K/uL (0.1-1.30); MONOCYTES % (AUTO) 8.8 % (2.0-12.0); NEUTROPHILS # (AUTO) 4.9 K/uL (1.8-8.9); NEUTROPHILS % (AUTO) 68.4 % (43.0-81.0); PLATELET COUNT (AUTO) 276 K/uL (150-450); WHITE BLOOD COUNT (AUTO) 7.2 K/uL (4.3-11.0)
[2021-06-05] MEDS: LIOTHYRONINE SODIUM (25 MCG) 25 MCG TABLET PO SCH (07:59)
[2021-06-05 08:00] VITALS: BP 143/66
[2021-06-05] MEDS: LEVOTHYROXINE SODIUM 100 MCG TABLET PO SCH (08:00)
[2021-06-05] MEDS: LORAZEPAM 0.5 MG TABLET PO SCH ×3 (08:00→16:20)
[2021-06-05] MEDS: OLANZAPINE 5 MG TABLET PO SCH ×4 (08:01→21:51)
[2021-06-05 08:14] LABS: ALBUMIN 3.4 g/dL (3.4-5.0); BILIRUBIN,TOTAL 0.6 mg/dL (0.2-1.0); CALCIUM, SERUM 9.3 mg/dL (8.5-10.1); MAGNESIUM 2.2 mg/dL (1.8-2.4); POTASSIUM 3.5 mmol/L (3.5-5.1); TOTAL PROTEIN, SERUM 7.6 g/dL (6.4-8.2)
--- NOTE | 2021-06-05 09:00 | NUR ---
RN NOTE- PATIENT SANDY CHAIR TEARFUL LABILE .BLUNTED AFFECT, ANXIOUS ,EASILY AGITATED DISORGANIZED, DISORIENTED, CONFUSED, POOR INSIGHT, POOR JUDGEMENT. NEEDS FREQUENT REDIRECTIONS , ATTEMPTING GETTING OUT THE BED VERY OFTEN , SAFETY PRECAUTIONS MAINTAINED ,NO ACUTE DISTRESS NOTED. WILL CONTINUE TO MONITOR Q15 MIN FOR MOOD, SAFETY AND BEHAVIOR.
[2021-06-05] MEDS: MEMANTINE HCL 5 MG TABLET PO SCH ×2 (09:06→16:22)
[2021-06-05] MEDS: RIVASTIGMINE TARTRATE 1.5 MG CAPSULE PO SCH ×2 (09:06→16:20)
[2021-06-05] MEDS: MULTIVITAMINS,THERAGRAN 1 UDTAB TABLET PO SCH (09:06)
[2021-06-05] MEDS: LITHIUM CARBONATE 150 MG CAPSULE PO SCH ×3 (09:06→16:20)
[2021-06-05] MEDS: FAMOTIDINE (20 MG) 20 MG TABLET PO SCH ×2 (09:06→21:49)
[2021-06-05 12:52] LABS: T4 (THYROXINE) 7.2 ug/dL (4.7-13.3); THYROID STIMULATING HORMONE 2.461 uIU/mL (0.358-3.74)
--- NOTE | 2021-06-05 15:01 | NUR ---
RN NOTE- AGITATED SCREAMING. ATIVAN 0.5 MG ADMINISTERED
--- NOTE | 2021-06-05 15:59 | NUR ---
SS group note: SW met with pt.in the activity room to invite her to participate in group about: "What they hope will improve after their treatment at [facility]". Pt. is sitting in [facility]. Pt. was medicated and could not participate in group at this time. SW will monitor pt. and invite pt. to the next group if appropriate.
[2021-06-05 16:00] VITALS: BP 131/83
[2021-06-05 20:05] VITALS: BP 122/97
[2021-06-05] MEDS: SENNOSIDES 8.6 MG TABLET PO SCH (21:49)
[2021-06-06 08:00] VITALS: BP 101/63
[2021-06-06] MEDS: RIVASTIGMINE TARTRATE 1.5 MG CAPSULE PO SCH ×2 (08:00→17:27)
[2021-06-06] MEDS: LORAZEPAM 0.5 MG TABLET PO SCH ×3 (08:01→17:27)
[2021-06-06] MEDS: LIOTHYRONINE SODIUM (25 MCG) 25 MCG TABLET PO SCH (08:01)
[2021-06-06] MEDS: LEVOTHYROXINE SODIUM 100 MCG TABLET PO SCH (08:01)
[2021-06-06] MEDS: MEMANTINE HCL 5 MG TABLET PO SCH ×2 (08:01→17:27)
[2021-06-06] MEDS: MULTIVITAMINS,THERAGRAN 1 UDTAB TABLET PO SCH (08:01)
[2021-06-06] MEDS: FAMOTIDINE (20 MG) 20 MG TABLET PO SCH ×2 (08:01→21:16)
[2021-06-06] MEDS: OLANZAPINE 5 MG TABLET PO SCH ×4 (08:01→21:16)
[2021-06-06] MEDS: LITHIUM CARBONATE 150 MG CAPSULE PO SCH ×3 (08:01→17:27)
[2021-06-06 15:52] VITALS: BP 104/77
[2021-06-06 20:00] VITALS: BP 105/72
[2021-06-06] MEDS: SENNOSIDES 8.6 MG TABLET PO SCH (21:16)
--- NOTE | 2021-06-07 06:42 | NUR ---
RN NOTE COVID 19 SPECIMEN COLLECTED AND DROPPED OFF AT LAB FOR DISCHARGE PLACEMENT.
[2021-06-07 08:00] VITALS: BP 100/68
[2021-06-07] MEDS: RIVASTIGMINE TARTRATE 1.5 MG CAPSULE PO SCH (08:00)
[2021-06-07] MEDS: MEMANTINE HCL 5 MG TABLET PO SCH (08:00)
[2021-06-07] MEDS: OLANZAPINE 5 MG TABLET PO SCH (08:00)
[2021-06-07] MEDS ORDERED: LITHIUM CARBONATE 150 MG CAPSULE PO SCH (08:00)
[2021-06-07] MEDS: MULTIVITAMINS,THERAGRAN 1 UDTAB TABLET PO SCH (08:01)
[2021-06-07] MEDS: FAMOTIDINE (20 MG) 20 MG TABLET PO SCH (08:01)
[2021-06-07] MEDS: LEVOTHYROXINE SODIUM 100 MCG TABLET PO SCH (08:01)
[2021-06-07] MEDS: LIOTHYRONINE SODIUM (25 MCG) 25 MCG TABLET PO SCH (08:01)
[2021-06-07] MEDS: LORAZEPAM 0.5 MG TABLET PO SCH (08:05)
--- NOTE | 2021-06-07 09:35 | NUR ---
SW Discharge Note: Patient will be discharged to a locked group home facility to [facility] [address] [place] [address]; ([phone]). Please arrange ambulance transportation. Drink Box Mechanic spoke with Rosario, Career And Technology Education Teacher at [facility]; ([phone]), who stated patient will be accepted at facility today. Patient is alert and oriented x1, and is not able to plan for self-care at this time, but is willing to accept care provided for her at the facility. Patient denies any suicidal or homicidal ideations. Patient is aware and agreeable with discharge plans. Patients Bogdan ([phone]) is aware of discharge. Patient will continue to follow-up with her (Psychiatrist) Dr. Chavez [address] [facility] [address], [place] [address]; ([phone]) and Mastercam Programmer Dr. Pak [address] [facility] [address], [place] [address]; ([phone]). Patient presents with euthymic mood and congruent affect.
[2021-06-07] MEDS ORDERED: OLANZAPINE 5 MG TABLET PO SCH ×2 (13:00→21:00)
[2021-06-07] MEDS ORDERED: LORAZEPAM 0.5 MG TABLET PO SCH (13:00)
--- NOTE | 2021-06-07 13:32 | NUR ---
RN DISCHARGED NOTES PT DISCHARGED TO [facility] IN STABLE CONDITION. REPORT/DISCHARGED INSTRUCTIONS GIVEN VIA TEL TO CHERY PARIS. PT IS A/O X-1. ABLE TO COMMUNICATE VERBALLY, CONFUSED BUT DENIES SI/HI. PT AND HER BRITTANY ARE BOTH AWARE OF DISCHARGE TO SNF. V/S TAKEN, STABLE AND RECORDED. PHOTO OF SKIN ISSUES TAKEN AND FILED IN HER CHART. PT LEFT UNIT AT 1325 VIA GURNEY ACCOMPANIED BY 2 EMT'S FROM [facility]. DR DRUMMOND AND CHARGE NURSE BUD AWARE OF DISCHARGE.
== END 2021-06-07 13:30 | DRG 885 ==
LOC: ER 12:38 → GPS 16:04
PROVIDERS: ADMIT Psychiatry & Neurology Psychosomatic Medicine; ATTEND Nurse Practitioner Acute Care
DX: F25.0 Schizoaffective disorder, bipolar type (principal); F01.50 Vascular dementia, unspecified severity, without behavioral disturbance, psychotic disturbance, mood disturbance, and anxiety; F29 Unspecified psychosis not due to a substance or known physiological condition; G30.9 Alzheimer's disease, unspecified; F02.80 Dementia in other diseases classified elsewhere, unspecified severity, without behavioral disturbance, psychotic disturbance, mood disturbance, and anxiety; Z73.6 Limitation of activities due to disability; E03.9 Hypothyroidism, unspecified; E87.6 Hypokalemia; K21.9 Gastro-esophageal reflux disease without esophagitis; Z20.822 Contact with and (suspected) exposure to COVID-19; Z91.19 Patient's noncompliance with other medical treatment and regimen; Z88.2 Allergy status to sulfonamides
CPT/HCPCS: 36415; 71045-TC; 80048-TC; 80053-TC; 80061-TC; 80076-TC; 82962-TC; 83735-TC; 84436-TC; 84439-TC; 84443-TC; 84484-TC; 85025-TC; 87081-TC; C9803; G0480; J1200; J1630; J2060; J3490; J7030

== ENCOUNTER 2021-09-15 10:43 | Inpatient (IN) | payer MEDICARE, OTHER ==
[~2021-09-15] VITALS: Ht 170.2 cm; Wt 63.5 kg
[~2021-09-15 10:43] MED LIST: ACET-868 PO; FAMO20TA8 PO; LEVO100T9 PO; LIOT25TA13 PO; MAGN400O6 PO; MEMA10TA PO; MULT-447 PO; QUET25TA PO; QUET50TA PO; RIVA1.5C13 PO; SENN-261 PO; SERT25TA PO
--- NOTE | 2021-09-15 11:00 | NUR ---
RN-ADMISSION NOTES ADMITTED 71 Y.O FEMALE PATIENT FROM [facility]. PATIENT ARRIVED IN THE UNIT AMBULATORY STEADY A/O TO NAME ONLY. PATIENT ON 5150 HOLD FOR GD ADULT. UPON FACE TO FACE ASSESSMENT WITH HER,NOTED PATIENT IS UNABLE TO FOCUS ON THE CONVERSATION AND UNABLE TO ANSWER QUESTION. NOTED WITH EPISODE OF CRYING AND EASILY ANGRY BEHAVIOR. FULL BODY ASSESSMENT DONE MRSA SWAB DONE AND SENT TO LAB. PATIENT WAS ORIENTED IN THE UNIT AND UNIT POLICIES. BRITTANY GUZMAN( PATIENT'S SPOUSE) MADE AWARE OF THE ADMISSION. UNABLE TO GET INFORMATION REGARDING COVID VACCINE DUE TO PATIENT WAS CONFUSED. PER SPOUSE HE WILL GIVE THE UPDATE INFORMATION REGARDING VACCINATION WHEN HE COME TO VISIT THE PATIENT. DR. MADRIGAL (PSYCHIATRIST) AND MARK VENTURA ( LINING PRINTER) BOTH MADE AWARE OF THE ADMISSION. PATIENT'S OLMSTEAD BOOKLET WAS GIVEN TO THE PATIENT INCLUDING ADVISEMENT. WILL CONT. MONITORING FOR SAFETY AND BEHAVIOR.
[2021-09-15] MEDS ORDERED: OLAN2.5T3 PO (11:25)
--- NOTE | 2021-09-15 11:29 | NUR ---
SW Admit Source: Patient placed on a 5150 hold for GD. Pt found wandering on the streets and was confused/disorganized. Pt unable to answer any questions at this time due to confusion. Pt is currently homeless. Pt's Daquan ([phone]) is involved in pt's care. Pt will need possible placement.
--- NOTE | 2021-09-15 11:29 | NUR ---
LORI Initial Discharge Plan: Pt is currently homeless. Pt's Daquan ([phone]) is involved in pt's care. Pt will need possible placement. LORI will work with the MD and treatment team to help coordinate appropriate discharge.
[2021-09-15 11:30] VITALS: BP 144/69
[2021-09-15] MEDS ORDERED: MAG HYDROX/AL HYDROX/SIMETH 30 ML UDC PO PRN (11:30)
[2021-09-15] MEDS ORDERED: LORAZEPAM 0.5 MG TABLET PO PRN (11:30)
[2021-09-15] MEDS ORDERED: TEMAZEPAM 7.5 MG CAPSULE PO PRN (11:30)
[2021-09-15] MEDS ORDERED: MAGNESIUM HYDROXIDE 30 ML UDC PO PRN (11:30)
[2021-09-15] MEDS ORDERED: BLOOD SUGAR DIAGNOSTIC 1 EACH STRIP IN ONE (11:30)
[2021-09-15] MEDS ORDERED: ACETAMINOPHEN 325 MG TABLET PO PRN (11:30)
--- NOTE | 2021-09-15 13:44 | NUR ---
Sofia (psych director) spoke to Radha Lima [facility] who confirmed hold was started on 09/14/21.
--- NOTE | 2021-09-15 14:59 | NUR ---
LORI Family Contact: LORI contacted pt's Bogdan ([phone]) to discuss treatment and discharge plan. insisting on pt being discharge. He reports that they have a "home". This pt is familiar to this poem writer and has been living in a car.
[2021-09-15 16:00] VITALS: BP 144/69
--- NOTE | 2021-09-15 16:02 | NUR ---
APS REPORT: LORI FILED APS REPORT AGAINST ARGENTINA SOTO ([phone]) FOR NEGLECTING CARE FOR PT. Addendum: 09/15/21 at 1603 by LORI MORENO (Intake ID [id number]) THROUGH [facility] AND DOCUMENT WAS PLACED IN THE CHART.
[2021-09-15 17:26] LABS: THYROID STIMULATING HORMONE 0.132 uIU/mL (0.358-3.74)
[2021-09-15] MEDS: OLANZAPINE 2.5 MG TABLET PO SCH (17:42)
[2021-09-15 20:16] VITALS: BP_SYST 104; BP_SYST 105; BP_DIAS 53; BP_DIAS 65
[2021-09-15] MEDS: OLANZAPINE 10 MG TABLET PO SCH (21:10)
[2021-09-16 08:00] VITALS: BP 107/69
[2021-09-16] MEDS: LEVOTHYROXINE SODIUM 75 MCG TABLET PO SCH (08:05)
[2021-09-16] MEDS: OLANZAPINE 2.5 MG TABLET PO SCH ×2 (08:05→17:03)
[2021-09-16 12:40] LABS: CALCIUM, SERUM 9.2 mg/dL (8.5-10.1); CREATININE 0.9 mg/dL (0.6-1.3); POTASSIUM 3.8 mmol/L (3.5-5.1)
[2021-09-16 13:30] LABS: BILIRUBIN,TOTAL 0.5 mg/dL (0.2-1.0)
[2021-09-16 16:00] VITALS: BP 123/79
[2021-09-16 20:18] VITALS: BP 138/79
[2021-09-16 20:26] LABS: TOTAL PROTEIN, SERUM 7.6 g/dL (6.4-8.2)
[2021-09-16 20:36] LABS: CHOLESTEROL 216 mg/dL (<200); HDL CHOLESTEROL 60 mg/dL (40-60); LDL 140 mg/dL (0-99); TRIGLYCERIDES 76 mg/dL (30-150)
[2021-09-16] MEDS: OLANZAPINE 10 MG TABLET PO SCH (21:23)
[2021-09-16 22:00] VITALS: BP 132/78
[2021-09-17 08:00] VITALS: BP 113/64
[2021-09-17] MEDS: LEVOTHYROXINE SODIUM 75 MCG TABLET PO SCH (08:03)
[2021-09-17] MEDS: OLANZAPINE 2.5 MG TABLET PO SCH ×2 (08:03→16:16)
[2021-09-17 16:00] VITALS: BP 121/77
[2021-09-17 19:54] VITALS: BP 157/92
[2021-09-17] MEDS: OLANZAPINE 10 MG TABLET PO SCH (21:15)
[2021-09-18] MEDS: hydrOXYzine PAMOATE 25 MG CAPSULE PO PRN (02:08)
--- NOTE | 2021-09-18 02:50 | NUR ---
GPS RN NOTES PATIENT AGITATED AND RESTLESS; SCREAMING AT STAFF; PATIENT IN SANDY-CHAIR, PUSHING TABLES; TRYING TO GET OUT OF CHAIR; PRN MEDS GIVEN, PATIENT STILL AGITATED AND RESTLESS; POSTING MACHINE OPERATOR WITH PATIENT IN DAY ROOM, CHARGE NURSE AWARE; WILL CONTINUE TO MONITOR
[2021-09-18 08:00] VITALS: BP 139/77
[2021-09-18] MEDS: OLANZAPINE 2.5 MG TABLET PO SCH ×2 (09:29→16:16)
[2021-09-18] MEDS: LEVOTHYROXINE SODIUM 75 MCG TABLET PO SCH (09:29)
--- NOTE | 2021-09-18 13:07 | NUR ---
LORI Family Contact: LORI spoke with patient's Monroe ([phone]) to discuss discharge/placement. Monroe kept repeating himself and stating that this commercial loan underwriter does not care about his well-being. He kept stating that he has everything ready for pt and has a apartment but is unable to give further information. He stated that he wants her back home and is the [facility] caregiver. LORI explained that the hospital recommendation is for pt to go to a higher level of care to a nursing facility. He was doubtful of this decision but agreed towards the end.
--- NOTE | 2021-09-18 13:44 | NUR ---
APS CONTACT: SW contacted APS to follow up on pt's case ([phone]). SW was unable to speak to floor representative and left a detailed voicemail.
--- NOTE | 2021-09-18 13:56 | NUR ---
LORI Family Contact: SW spoke with patient's Monroe ([phone]) and he confirmed address and stated that they have been living there since June 27, 2021, located at [address] [place] [address]; ([phone]).
[2021-09-18 16:00] VITALS: BP 125/88
[2021-09-18 20:12] VITALS: BP 101/64
[2021-09-18 20:38] VITALS: BP 101/64
[2021-09-18] MEDS: OLANZAPINE 10 MG TABLET PO SCH (21:30)
[2021-09-19] MEDS: hydrOXYzine PAMOATE 25 MG CAPSULE PO PRN ×2 (06:49→23:00)
[2021-09-19] MEDS: LEVOTHYROXINE SODIUM 75 MCG TABLET PO SCH (06:55)
--- NOTE | 2021-09-19 06:55 | NUR ---
GPS RN NOTE: ANXIETY PATIENT IS RESTLESS AND ANXIOUS,PRN VISTARIL 25 MG PO ADMINISTERED. WILL ENDORSE TO AM RN.
[2021-09-19 08:00] VITALS: BP 108/57
[2021-09-19] MEDS: OLANZAPINE 2.5 MG TABLET PO SCH ×3 (08:37→16:44)
--- NOTE | 2021-09-19 09:17 | NUR ---
SNF Referral: LORI sent clinicals to Pema slade from [facility] ([phone]) for placement. SW sent H & P, progress notes, and medication list.
--- NOTE | 2021-09-19 14:03 | NUR ---
LORI Family Contact: SW spoke with patient's Monroe ([phone]) in regards to pt's circumstance and situation. He appears not to understand patient's condition and keeps mentioning that he is the [facility] caregiver and that this movie writer does not care about his well-being. SW stated pt will need higher level of care such as a nursing facility. He was not understanding and does not understand of patient's condition.
[2021-09-19 16:00] VITALS: BP 122/77
[2021-09-19 19:57] VITALS: BP 102/70
[2021-09-19] MEDS: OLANZAPINE 10 MG TABLET PO SCH (21:31)
--- NOTE | 2021-09-19 23:02 | NUR ---
GPS RN NOTE: ANXIETY PATIENT IS RESTLESS, ANXIOUS, AGITATED, SCREAMING AND CRYING, PRN VISTARIL 25 MG PO ADMINISTERED.
[2021-09-20] MEDS: hydrOXYzine PAMOATE 25 MG CAPSULE PO PRN (05:45)
--- NOTE | 2021-09-20 05:45 | NUR ---
GPS RN NOTE: ANXIETY PATIENT IS RESTLESS, ANXIOUS, AGITATED, SCREAMING/YELLING, PRN VISTARIL 25 MG PO ADMINISTERED.
[2021-09-20 08:00] VITALS: BP 134/78
--- NOTE | 2021-09-20 08:45 | NUR ---
Court Hearing Notification: LORI contacted pt's Monroe ([phone]) to notify of pt's court hearing for [phone]. He is aware.
[2021-09-20] MEDS: LEVOTHYROXINE SODIUM 75 MCG TABLET PO SCH (09:21)
[2021-09-20] MEDS: OLANZAPINE 2.5 MG TABLET PO SCH ×2 (09:21→17:24)
--- NOTE | 2021-09-20 10:56 | NUR ---
Court Hearing: Patient's court hearing was today and it was upheld for GD. Patient's Monroe ([phone]) attended the hearing.
--- NOTE | 2021-09-20 15:08 | NUR ---
APS CONTACT: LORI contacted APS to follow up on pt's case ([phone]). LORI was unable to speak to automobile rental representative and left a detailed voicemail. Addendum: 09/20/21 at 1509 by LORI MORENO LORI was transferred to [facility] ([phone]) and they were unavailable. LORI left a voicemail.
[2021-09-20 16:00] VITALS: BP 142/75
[2021-09-20 20:19] VITALS: BP 124/80
[2021-09-20] MEDS: OLANZAPINE 10 MG TABLET PO SCH (21:59)
[2021-09-21 08:00] VITALS: BP 119/70
[2021-09-21] MEDS: OLANZAPINE 2.5 MG TABLET PO SCH ×2 (08:18→16:46)
[2021-09-21] MEDS: LEVOTHYROXINE SODIUM 75 MCG TABLET PO SCH (08:18)
--- NOTE | 2021-09-21 09:06 | NUR ---
APS CONTACT: LORI CONTACTED APS ([phone]) AND SPOKE WITH END FINDER FORMING DEPARTMENT WHO STATED THAT PT HAS A OPEN CASE SINCE JULY 2021. GIFT SHOP CLERK ASSIGNED IS KAYA ([phone]). LORI CONTACTED KAYA AND LEFT A URGENT VOICEMAIL TO CONTACT THIS VACATION GUIDE.
--- NOTE | 2021-09-21 10:27 | NUR ---
Staff reported to the primary nurse that pt. lost balance and hit her left side of the head in the wall. Per staff pt. did not fall. Pt denies pain, v/s taken : BP 100/63,, CA 102. Addendum: 09/21/21 at 1125 by AMY MANDUJANO RN Lost balance when she got up from the chair.
--- NOTE | 2021-09-21 11:24 | NUR ---
Dr. Chavez made aware of the incident and ordered CT of the head without contrast.
[2021-09-21] MEDS: GABAPENTIN 100 MG CAPSULE PO SCH ×2 (12:29→16:46)
--- NOTE | 2021-09-21 12:50 | NUR ---
Dr. Mendoza made aware of the incident and made aware that Dr. Chavez ordered CT of the head without contrast.
--- NOTE | 2021-09-21 13:01 | NUR ---
Dr. Mendoza and Dr. Chavez made aware of the result of the CT of the head and made of the incident and made aware of the result of the CT of the head.
--- NOTE | 2021-09-21 14:55 | NUR ---
SNF Referral: LORI sent clinicals to Meaghan slade ([phone]) for placement option. LORI sent H & P, progress notes, and medication list.
--- NOTE | 2021-09-21 14:56 | NUR ---
SNF Referral: SW sent clinicals to [facility] to Riya Joseph ([phone]) for placement option. SW sent H & P, progress notes, and medication list.
--- NOTE | 2021-09-21 14:56 | NUR ---
SNF Contact: SW spoke with Meaghan slade ([phone]) who stated pt is denied to pt requiring a locked unit.
--- NOTE | 2021-09-21 14:57 | NUR ---
SNF Referral: SW spoke with [facility] to Riya [facility] ([phone]) who stated that pt is accepted.
[2021-09-21 16:00] VITALS: BP 136/66
--- NOTE | 2021-09-21 16:18 | NUR ---
SNF Contact: SW spoke with Pema slade from [facility] ([phone]) who stated that pt is accepted.
[2021-09-21 20:00] VITALS: BP_SYST 106; BP_SYST 154; BP_DIAS 53; BP_DIAS 71
[2021-09-21] MEDS: hydrOXYzine PAMOATE 25 MG CAPSULE PO PRN (21:19)
--- NOTE | 2021-09-21 21:21 | NUR ---
GPS RN NOTES: PATIENT IS ANXIOUS AND RESTLESS AND YELLING. VISTARIL 25MG GIVEN PO AT 2118. WILL CONTINUE MONITOR.
[2021-09-21] MEDS: OLANZAPINE 10 MG TABLET PO SCH (21:51)
[2021-09-22 08:00] VITALS: BP 90/62
[2021-09-22] MEDS: LEVOTHYROXINE SODIUM 75 MCG TABLET PO SCH (09:29)
[2021-09-22] MEDS: GABAPENTIN 100 MG CAPSULE PO SCH ×3 (09:29→16:23)
[2021-09-22] MEDS: OLANZAPINE 2.5 MG TABLET PO SCH ×2 (09:29→16:23)
--- NOTE | 2021-09-22 11:27 | NUR ---
Patient's Right: LORI received a phone call from Ekta ([phone]) from patient's right who was questioning this com writer. Ekta requesting for staff to provide writ to the patient because the Monroe requested this. LORI explained to Ekta that pt is demented and is unable to have a proper conversation or answer any questions. LORI and charge nurse will offer pt the writ.
--- NOTE | 2021-09-22 11:30 | NUR ---
WRIT: LORI and charge nurse Renaldo offered writ to pt and explained if she would want a second hearing or contest her 14 day hold. Pt blankly staring and unable to give a proper answer. LORI notified Ekta ([phone]) and left a detailed voicemail.
--- NOTE | 2021-09-22 13:34 | NUR ---
LORI Referral: LORI sent referral packet to Leigh Ann ([phone]) veterinary epidemiologist for [facility] and [facility]. SW sent H & P, progress notes, and medication list.
--- NOTE | 2021-09-22 13:35 | NUR ---
SW Contact: SW received a call from Leigh Ann ([phone]) who stated pt cannot be accepted to [facility] or [facility] due to behavioral issues and they are unable to care for pt properly.
--- NOTE | 2021-09-22 15:47 | NUR ---
Patient's Right: Patient's right Ekta ([phone]) was notified at 12PM that pt did not want to file for another writ. At 3:40PM Ekta ([phone]) contacted pt on the unit and interviewed the pt and pt stated "No" she did not want to file for a writ.
[2021-09-22 16:00] VITALS: BP 103/57
--- NOTE | 2021-09-22 19:30 | NUR ---
GPS RN OPENING NOTE RECEIVED PATIENT RESTING IN BED, EASILY AROUSABLE. A/O X1 WITH EPISODES OF CONFUSION. PT STABLE ON ROOM AIR. NO SOB OR S/S OF RESPIRATORY DISTRESS NOTED. PATIENT IS CONFUSED, DISORGANIZED, MED COMPLIANT, AND EASILY IRRITABLE. PATIENT DENIES SI/HI AT THIS TIME. SAFETY PRECAUTIONS IN PLACE. BED IN LOWEST LOCKED POSITION, SIDE RAILS UP X2, AND CALL LIGHT IN REACH. WILL CONTINUE WITH PLAN OF CARE.
[2021-09-22] MEDS: OLANZAPINE 10 MG TABLET PO SCH (21:49)
[2021-09-23] MEDS: hydrOXYzine PAMOATE 25 MG CAPSULE PO PRN ×3 (03:06→13:33)
--- NOTE | 2021-09-23 03:06 | NUR ---
RN NOTE PATIENT IS ANXIOUS, RESTLESS, AND YELLING. ADMINISTERED VISTARIL 25 MG PO FOR ANXIETY ORDERED. WILL CONTINUE WITH PLAN OF CARE.
[2021-09-23 08:00] VITALS: BP 128/79
[2021-09-23] MEDS: GABAPENTIN 100 MG CAPSULE PO SCH ×3 (08:06→16:55)
[2021-09-23] MEDS: LEVOTHYROXINE SODIUM 75 MCG TABLET PO SCH (08:06)
[2021-09-23] MEDS: OLANZAPINE 2.5 MG TABLET PO SCH ×2 (08:06→16:55)
[2021-09-23 16:00] VITALS: BP 143/67
--- NOTE | 2021-09-23 18:30 | NUR ---
SPOUSE IN TO VISIT 2X,REASSURED PT.WALKING ABOUT AND IN SANDY CHAIR FOR SAFETY.
[2021-09-23 20:00] VITALS: BP 139/70
[2021-09-23] MEDS: OLANZAPINE 10 MG TABLET PO SCH (21:22)
--- NOTE | 2021-09-24 02:59 | NUR ---
RN OPENING NOTE PATIENT AWAKE IN HER ROOM. A/OX1. NO S/S OF DISTRESS; BREATHING UNLABORED ON RM AIR. PATIENT PRESENTS IN A PLEASANT MOOD WHILE LOOKING THROW A GREEN FOLDER OF IMAGES. SAFETY MEASURES IN PLACE: BED AT LOWEST POSITION, CALL LIGHT WITHIN ACCESS. WILL CONTINUE TO MONITOR PATIENT.
[2021-09-24] MEDS: LEVOTHYROXINE SODIUM 75 MCG TABLET PO SCH (06:39)
[2021-09-24 08:00] VITALS: BP 134/71
[2021-09-24] MEDS: GABAPENTIN 100 MG CAPSULE PO SCH ×3 (08:51→16:29)
[2021-09-24] MEDS: OLANZAPINE 2.5 MG TABLET PO SCH ×2 (08:51→16:29)
[2021-09-24 16:00] VITALS: BP 153/94
[2021-09-24 20:16] VITALS: BP 120/81
[2021-09-24 20:21] VITALS: BP 120/61
[2021-09-24] MEDS: OLANZAPINE 10 MG TABLET PO SCH (22:00)
--- NOTE | 2021-09-24 22:35 | NUR ---
GPS RN NOTES PER , (RADHA), PLEASE LET PATIENT REST AND DO NOT WAKE HER UP IF SLEEPING; PATIENT HAS BEEN RESTING/SLEEPING IN BED SINCE LEFT; 2100. NO PICTURES TAKEN AT THIS TIME DUE TO REQUEST; WAS INFORMED ON COMPLIANCE THROUGHOUT HOSPITALIZATION, UNDERSTANDS BUT IS REQUESTING FOR PATIENT TO REST TONIGHT; NO MEDS GIVEN AT THIS TIME; PER REQUEST; CHARGE NURSE MADE AWARE; WILL CONT TO MONITOR
[2021-09-25] MEDS: hydrOXYzine PAMOATE 25 MG CAPSULE PO PRN ×2 (00:22→12:05)
--- NOTE | 2021-09-25 04:38 | NUR ---
GPS RN NOTES PATIENT IN DAY ROOM IN SANDY-CHAIR, CONSTANTLY YELLING AND SCREAMING, DISRUPTIVE BEHAVIOR; UNABLE TO CONTROL BEHAVIOR; PATIENT KEEPS STATING SHE NEEDS TO GO TO SCHOOL, AFRAID SHE WILL BE LATE; PATIENT WAS RE-ORIENTED TO UNIT; FREQUENT ORIENTS PROVIDED; AND PRN MEDS GIVEN. CHARGE NURSE IS AWARE;
--- NOTE | 2021-09-25 07:30 | NUR ---
PT RECEIVED RESTING COMFORTABLY IN BED. NO S/S OR C/O PAIN OR DISTRESS NOTED. SIDE RAILS UP X2. WILL CONTINUE PLAN OF CARE
[2021-09-25 08:00] VITALS: BP 123/75
[2021-09-25] MEDS: LEVOTHYROXINE SODIUM 75 MCG TABLET PO SCH (08:58)
[2021-09-25] MEDS: GABAPENTIN 100 MG CAPSULE PO SCH ×3 (08:58→16:22)
[2021-09-25] MEDS: OLANZAPINE 2.5 MG TABLET PO SCH ×2 (08:58→16:22)
--- NOTE | 2021-09-25 11:58 | NUR ---
LORI Family Contact: SW spoke with patient's Monroe ([phone]) and notified that pt will be discharged to [facility] 09/26. He was agreeable but he was making inappropriate comments towards this insurance writer and stating that "the doctor and you are doing good business together". He was verbally abusive towards this insurance writer.
--- NOTE | 2021-09-25 13:20 | NUR ---
APS CONTACT: LORI CONTACTED HEEL SEAM RUBBER KAYA ([phone]) AND LEFT ANOTHER DETAILED VOICEMAIL TO CONTACT THIS CHILD LIFE ASSISTANT.
--- NOTE | 2021-09-25 14:50 | NUR ---
SW Note: Mirna Ekta ([phone]) from patient's right stated that she spoke to [facility] and they said they cannot support the statement that care for pt. Mirna insisted on discharging patient back to . Mirna spoke with Sofia Barnes Director and fiber glass worker CICI Boone.
--- NOTE | 2021-09-25 15:07 | NUR ---
LORI Coordination of Care: Patient will follow up with (Slurry Tank Operator) Dr. Mesha Duval located at [address] [place] [id number]; : ([phone]) on September 28 at 8:30AM.
--- NOTE | 2021-09-25 15:29 | NUR ---
LORI Coordination of Care: Patient will follow up with (Psychatrist) Dr. Novak located at [address] [place] [address], [facility]; ([phone]) on September 29 at 10AM. Juanita ([phone]) from patient's rights notified that and confirmed the appointment.
--- NOTE | 2021-09-25 15:33 | NUR ---
SW Discharge Note: Patient will be discharged home located at [address] [place] [address]; ([phone]). Patients Monroe will pear picker pt at 6PM. Monroe will take full responsibility of pt and stated that he is he SS caregiver. Patient is alert and oriented x1. Patient denies visual/auditory hallucinations. Patient denies suicidal or homicidal ideation. Patient will follow up with (International Logistics Analyst) Dr. Mesha Duval located at [address] [place] [address]: ([phone]) on September 28 at 8:30AM. Patient will follow up with (Psychiatrist) Dr. Novak located at [address] [address]; ([phone]) on September 29 at 10AM. Patient was provided resources for a psychiatrist: [facility] ([phone]), [facility] ([phone]), and [facility] ([phone]). Patient refused to sign the homeless waiver upon discharge and a copy was placed in the chart. Homeless resources were provided and include [address] information line for shelters and homeless resources. A copy of all resources given to patient was also placed in the chart. Patient presents with euthymic mood and congruent affect.
[2021-09-25 16:00] VITALS: BP 100/70
--- NOTE | 2021-09-25 18:17 | NUR ---
DISCHARGE 71 Y/O FEMALE DISCHARGED TO HOME IN STABLE CONDITION. COMPLIANT WITH MEDS, COOPERATIVE WITH TREATMENT PLANS. PATIENT DENIES SI/HI AND INSTRUCTED TO GO TO THE CLOSEST ER IF DEVELOPING SI/HI. BEHAVIOR IMPROVED, PSYCHIATRIC TX PLANS MET. MEDICAL TX PLANS DEFERRED FOR CONTINUAL MONITORING. EDUCATED PT ABOUT AFTER CARE PLAN (EXIT-CARE) AND COPY PROVIDED. RETURNED PERSONAL BELONGINGS TO PATIENT.
== END 2021-09-25 18:10 | disposition home or self-care (01) | DRG 885 ==
LOC: GPS 10:45
PROVIDERS: ADMIT Psychiatry & Neurology Psychosomatic Medicine; ATTEND Nurse Practitioner Acute Care
DX: F25.0 Schizoaffective disorder, bipolar type (principal); F01.50 Vascular dementia, unspecified severity, without behavioral disturbance, psychotic disturbance, mood disturbance, and anxiety; F02.80 Dementia in other diseases classified elsewhere, unspecified severity, without behavioral disturbance, psychotic disturbance, mood disturbance, and anxiety; G30.9 Alzheimer's disease, unspecified; E03.9 Hypothyroidism, unspecified; M19.90 Unspecified osteoarthritis, unspecified site; Z59.00 Homelessness unspecified; Z90.710 Acquired absence of both cervix and uterus; Z73.6 Limitation of activities due to disability; Z88.2 Allergy status to sulfonamides
CPT/HCPCS: 36415; 70450-TC; 80053-TC; 80061-TC; 84439-TC; 84443-TC; 87081-TC; Q0177